=== PATIENT | male | born 1960 | race Caucasian/White ===

== ENCOUNTER 2018-06-21 18:35 | Emergency (ER) | payer OTHER ==
[~2018-06-21] VITALS: Ht 188 cm; Wt 95.2 kg
[~2018-06-21 18:35] MED LIST: ACET325 PO; ALBU.083IS IH; ALBU8HFA2 INH; ALBU90OI INH; ALBU90OI6 INH; ALBU90OI61 INH; AMOCLA875 PO; ANORO ELLIPTA1 EACH INH; ASPI81CH PO; ATOR40TA PO; ATOR80 PO; Accuneb1.25 MG/3 INH; Acetaminophen325 M1 PO; Adult Low Dose81 MG PO; BENZ100A PO; BREO ELLIPTA 11 EACH IH; BUSP5 PO; CIPR500 PO; CLOP75 PO; CRUTCH3 USE; CYAN1000 PO; DIAZ5 PO; DIVA500EC PO; DOXY100 PO; DULO30 PO; DULO60 PO; ERGO400 PO; ESOM20; FENO145 PO; FENO48; FISH1000 PO; FLUO10 PO; FLUSAL1005 IH; FLUSAL2505 IH; FOLI400 PO; Fenofibrate134 MG PO; GABA100 PO; GABA300 PO; GLIM2 PO; HYDACE5 PO; HYDPAM25 PO; HYDR-86 PO; IBUP600 PO; INSULANI SUBQ; INSULANPEN SC; Lopressor 50 mg50 MG PO; MECL25 PO; META800 PO; METF500 PO; METO100ER PO; METO50 PO; METO50ER PO; METR500 PO; NAPR500 PO; NAPR550 PO; NITR.2TP TOP; NITR.4SL SL; NITR.6SL; Nitroglycerin0.4 MG SL; ONDA4 PO; OXYACE5T PO; PANT40 PO; PRALUENT P75 MG/1 ML SQ; PROM25 PO; RANI150 PO; RANO500T PO; ROSU10TA PO; ROSU5 PO; RXOXYACE PO; RXPROM25 PO; RXTRAM50 PO; TERA5 PO; TIOT18 IH; TIOT18 INH; TOPI25 PO; TRAM50 PO; TRAZ100 PO; TRAZ50 PO; Ultram50 MG PO; VERA180ER PO; VERA240ER PO; VERA240ERA PO; Ventolin Soln3 ML; Ventolin5 MG/1 ML IH; Vistaril25 MG PO; Zithromax250 MG PO
== END 2018-06-21 22:57 | disposition left against medical advice (07) ==
LOC: ER 18:35
DX: Z53.21 Procedure and treatment not carried out due to patient leaving prior to being seen by health care provider (principal)
CPT/HCPCS: 71046; 93005; 93010

== ENCOUNTER → 2019-07-16 | Outpatient (CLI) | payer OTHER ==
[~2019-07-16] MED LIST changes: +ALBU2.5V5 NEB; +Cymbalta60 MG PO; +FENO67 PO; +NITR.8TP TD; +PRALUENT P75 MG/1 ML SC; +STIOLTO RESPIMAT4 GM INH; +TAMS.4ER PO
== END | disposition home or self-care (01) ==
LOC: LAB SHORT 07:53 → PLD 07:53
DX: L98.8 Other specified disorders of the skin and subcutaneous tissue (principal)
CPT/HCPCS: 88305

== ENCOUNTER 2019-09-14 18:15 | Observation (INO) | payer OTHER ==
[~2019-09-14] VITALS: Ht 182.9 cm; Wt 97.1 kg
[~2019-09-14 18:15] MED LIST changes: +ALBU2.5V5 INH; +BUSP10 PO; +Nitroglycerin1 EAC3 TD; +VOLTAREN100 GM; +Ventolin/Prove6.7 GM INH
[2019-09-14 19:06] LABS: BASOPHILS ABSOLUTE AUTO 0.04 K/mm3 (0.00-0.23); BASOPHILS PERCENT AUTO 1 % (0-2); EOSINOPHILS ABSOLUTE AUTO 0.03 K/mm3 (0.00-0.68); EOSINOPHILS PERCENT AUTO 0 % (0-6); Hematocrit 45.8 % (37.0-53.0); Hemoglobin 15.3 g/dL (13.5-17.5); IMMATURE GRAN ABSOLUTE AUTO 0.02 K/mm3 (0.00-0.10); IMMATURE GRAN PERCENT AUTO 0 % (0-1); LYMPHOCYTES ABSOLUTE AUTO 1.68 K/mm3 (0.84-5.20); LYMPHOCYTES PERCENT AUTO 22 % (21-46); MONOCYTES ABSOLUTE AUTO 0.63 K/mm3 (0.16-1.47); MONOCYTES PERCENT AUTO 8 % (4-13); Mean Corpuscular HGB 30.7 pg (26.0-34.0); Mean Corpuscular HGB Conc 33.4 g/dL (31.5-36.5); Mean Corpuscular Volume 92 fL (80-100); NEUTROPHILS ABSOLUTE AUTO 5.27 K/mm3 (1.96-9.15); NEUTROPHILS PERCENT AUTO 69 % (41-73); Platelet Count 205 K/mm3 (150-400); RDW Coefficient Variation 12.8 % (11.7-14.2); RDW Standard Deviation 43.2 fL (35.1-46.3); Red Blood Cell Count 4.98 M/mm3 (4.30-5.90); White Blood Cell Count 7.67 K/mm3 (4.00-11.30)
[2019-09-14 19:21] LABS: Alanine Aminotransfer (ALT/SGP 46 U/L (12-78); Albumin, Blood 3.6 g/dL (3.4-5.0); Albumin/Globulin Ratio 1.2 (0.8-1.8); Alk Phos 83 U/L (50-136); Anion Gap 4 mmol/L (6-16); Aspartate Aminotrans (AST/SGOT 21 U/L (12-37); Bilirubin, Total 0.8 mg/dL (0.1-1.0); Blood Urea Nitrogen 11 mg/dL (8-24); Bun/Creatinine Ratio 10.1 (12.0-20.0); CO2, Blood 26 mmol/L (21-32); Calcium, Blood 8.7 mg/dL (8.5-10.1); Chloride, Blood 110 mmol/L (98-108); Creatinine, Blood 1.09 mg/dL (0.60-1.20); Globulin, Blood 3.1 g/dL (2.2-4.0); Glomerular Filtration Rate >60 (60-); Glucose, Blood 111 mg/dL (70-99); Sodium, Blood 140 mmol/L (136-145); Total Protein, Blood 6.7 g/dL (6.4-8.2); Troponin I <0.015 ng/mL (0.000-0.040)
--- NOTE | 2019-09-14 22:00 | NUR ---
PT FROM ER TRANSFERRED SELF TO BED; PT A&O STATING HER HAD CHEST PAIN EARLIER; PARTNER AND FAMILY AT BEDSIDE; PT ON RA; 02 SATS >93; VSS; INCREASED SLEEPINESS OVER 1-2HR PERIOD; AFTER REVIEWING EMAR HELD BUSPAR DUE TO SEDATION LEVEL; SNACKS BROUGHT TO PT; TOO SLEEPY TO EAT; CALL LIGHT IN REACH; BED IN LOWEST POSITION; WILL CONTINUE TO MONITOR CLOSELY
--- NOTE | 2019-09-15 01:42 | NUR ---
UPDATE PT ALERT REQUESTING PAIN MEDS; PT EDUCATED ON TIME FRAME OF ADMINISTRATION; MORE VISITORS TO ROOM; PT VISITING AND LAUGHING; VSS; O2 SATS >93 ON RA; DIET SPRITE BROUGHT TO PT; SNACKS ON TRAY TABLE; CALL LIGHT IN REACH; BED IN LOWEST POSITION
--- NOTE | 2019-09-15 05:14 | NUR ---
SHIFT SUMMARY PT SLEPT WELL AFTER VISITORS LEFT; PARTNER SLEEPING IN CHAIR AT BEDSIDE; VSS; O2 SATS >90 ON RA; CALL LIGHT IN REACH; BED IN LOWEST POSITION; WILL CONTINUE TO MONITOR CLOSELY
--- NOTE | 2019-09-15 08:30 | NUR ---
UPON INITIAL ASSESSMENT, PT REPORTED CHEST PESSURE/PAIN RATED 4/10 WITH PAIN IN THE LEFT ARM. EXPLAINED PRN TREATMENT OF NITRO SL TO PT, HOWEVER PT REFUSED. BREAKFAST TRAY GIVEN TO PT AND EXPLAINED HOW THE MENU WORKS, PT DECLINED BREAKFAST AND STATED "DON'T BOTHER GIVING ME ANY TRAYS, YOUR FOOD IS CRAP. I'LL HAVE SOMEONE BRING ME FOOD" EXPLAINED TO PT THAT HE IS ON A SPECIALIZED DIET THAT IS RECOMMENDED FOR HIM TO FOLLOW. PT REQUESTED HIS MEDICATION FOR ANXIETY, PRN MED GIVEN.
--- NOTE | 2019-09-15 11:37 | NUR ---
Echocardiogram completed.
--- NOTE | 2019-09-15 14:15 | NUR ---
PT ARRIVED BACK TO ROOM FROM [facility], S/P HEART CATH. TR BAND IN PLACE WITH 10MLS OF AIR, NO HEMATOMA NOTED. IV ACCESS WAS LOST WHILE AT [facility], AFTER MULTIPLE POKES, A FEMORAL VENOUS LINE WAS PLACED FOR IV ACCESS. HEART CATH WAS CLEAN, NO BLOCK AGES. AFTER RECOVERY OF HEART CATH, PLAN IS TO DISCHARGE PT HOME. PT IS CURRENTLY LETHARGIC, AWAKENS EASILY AND FOLLOWS COMMANDS. ENCOURAGED PT TO TAKE DEEP BREATHS, HE IS SHALLOW BREATHING. 2L O2 PLACED VIA NASAL CANNULA UNTIL PT IS MORE AWAKE. TELEMETRY SHOWS PT TO BE IN SINUS RHYTHM. FAMILY AT BEDSIDE
[2019-09-15] MEDS ORDERED: ALPR.5 PO (15:17)
[2019-09-15] MEDS ORDERED: ATOR20 PO (15:19)
--- NOTE | 2019-09-15 18:18 | NUR ---
DISCHARGE INSTRUCTIONS GONE OVER WITH PT AND FRIEND. PROVIDED PRESCRIPTION TO PT AND INSTRUCTED ON HOW TO HAVE FILLED. PT AND FRIEND STATED UNDERSTANDING. WENT OVER IN DETAIL CARE ON RADIAL ACCESS POST HEART CATH. DISCHARGE PACKET GIVEN TO PT. PRIOR TO DISCHARGE INSTRUCTIONS FEMORAL VENOUS SHEATH WAS REMOVED AND MANUAL PRESSURE APPLIED FOR 5 MINUTES. DRESSING APPLIED AND INSTRUCTED PT ON CARE OF SITE. FEMORAL SITE LOOKED GOOD POST AMBULATION. ALL BELONGINGS WERE GATHERED AND PT WAS ESCORTED OUT VIA W/C BY PCT.
== END 2019-09-15 18:10 | disposition home or self-care (01) ==
LOC: ER 18:15 → PCU 18:16
PROVIDERS: Emergency Medicine; ADMIT Family Medicine
DX: R07.9 Chest pain, unspecified (principal); I25.10 Atherosclerotic heart disease of native coronary artery without angina pectoris; R55 Syncope and collapse; I42.1 Obstructive hypertrophic cardiomyopathy; E78.5 Hyperlipidemia, unspecified; F17.210 Nicotine dependence, cigarettes, uncomplicated; J44.9 Chronic obstructive pulmonary disease, unspecified; F41.9 Anxiety disorder, unspecified; E78.00 Pure hypercholesterolemia, unspecified; I25.2 Old myocardial infarction; E11.42 Type 2 diabetes mellitus with diabetic polyneuropathy; Z88.5 Allergy status to narcotic agent; Z88.8 Allergy status to other drugs, medicaments and biological substances; Z79.02 Long term (current) use of antithrombotics/antiplatelets; Z79.899 Other long term (current) drug therapy; Z79.51 Long term (current) use of inhaled steroids; Z71.6 Tobacco abuse counseling; Z79.4 Long term (current) use of insulin; Z86.73 Personal history of transient ischemic attack (TIA), and cerebral infarction without residual deficits
CPT/HCPCS: 36415; 71045; 76937; 80053; 82947; 84484; 85025; 85347; 85379; 93005; 93010; 93306; 93458; 96372-59; 96374; 96375; 96376; 99152; 99153; 99285-25; A9270; C1769; C1894; G0378; J1644; J1650; J2250; J2270; J2405; J3010; J7030; Q9967

== ENCOUNTER 2019-09-20 09:30 | Day surgery (SDC) | payer OTHER ==
[~2019-09-20] VITALS: Ht 188 cm; Wt 94.1 kg
[~2019-09-20 09:30] MED LIST changes: +ALPR.5 PO; +ATOR20 PO
--- NOTE | 2019-09-20 11:21 | NUR ---
09/20/19 1121 Blossom Bedoya MULTIPLE IV ATTEMPTS BY DIFFERENT PEOPLE. I WAS CALLED IN BY CHARGE NURSE SHERRY AND DID ONE ATTEMPT IN LEFT HAND. LOOKED AT HIS RIGHT FOOT WITH THE VEIN FINDER AND NOTHING VISUALIZED. USED THE VEIN FINDER AGAIN AND LOOKED AT LEFT AC AND DID ONE ATTEMPT, ASKING THE PATIENT PRIOR TO ATTEMPT IF HE WANTED ME TO TRY AGAIN. HE SAID YES. ANTHONY HALEY WAS PRESENT IN THE ROOM. ATTEMPT DONE WITH 22G. THE FIRST TIME THE PATIENT COMPLAINED IT WAS HURTING I STOPPED. HE GOT ANGRY AND STARTED DEMANDING SOMEONE ELSE. I ASSURRED HIM WE WOULD GET SOMEONE ELSE SOON I HAD HIS IV ATTEMPT SITE WRAPPED WITH COBAN APPROPRIATELY. ANTHONY AND I FINISHED WRAPPING HIS IV AND WE LEFT ROOM AND FIND DR CROOK. IN DISCUSSING THIS WITH PATIENT
== END 2019-09-20 13:12 | disposition home or self-care (01) ==
LOC: ORSCSDS 09:30
DX: Z86.010 Personal history of colon polyps (principal); Z53.9 Procedure and treatment not carried out, unspecified reason
CPT/HCPCS: 82947; J2250; J2704; J7120

== ENCOUNTER 2020-08-23 08:23 | Emergency (ER) | payer OTHER ==
[~2020-08-23] VITALS: Ht 188 cm; Wt 93.0 kg
[2020-08-23 09:07] LABS: BASOPHILS ABSOLUTE AUTO 0.02 K/mm3 (0.00-0.23); BASOPHILS PERCENT AUTO 0 % (0-2); EOSINOPHILS ABSOLUTE AUTO 0.03 K/mm3 (0.00-0.68); EOSINOPHILS PERCENT AUTO 1 % (0-6); Hematocrit 51.4 % (37.0-53.0); Hemoglobin 17.4 g/dL (13.5-17.5); IMMATURE GRAN ABSOLUTE AUTO 0.02 K/mm3 (0.00-0.10); IMMATURE GRAN PERCENT AUTO 0 % (0-1); LYMPHOCYTES ABSOLUTE AUTO 1.77 K/mm3 (0.84-5.20); LYMPHOCYTES PERCENT AUTO 28 % (21-46); MONOCYTES ABSOLUTE AUTO 0.66 K/mm3 (0.16-1.47); MONOCYTES PERCENT AUTO 10 % (4-13); Mean Corpuscular HGB 30.7 pg (26.0-34.0); Mean Corpuscular HGB Conc 33.9 g/dL (31.5-36.5); Mean Corpuscular Volume 91 fL (80-100); Mean Platelet Volume 9.1 fL (9.1-12.4); NEUTROPHILS ABSOLUTE AUTO 3.93 K/mm3 (1.96-9.15); NEUTROPHILS PERCENT AUTO 61 % (41-73); Platelet Count 196 K/mm3 (150-400); RDW Coefficient Variation 12.5 % (11.7-14.2); RDW Standard Deviation 42.1 fL (35.1-46.3); Red Blood Cell Count 5.67 M/mm3 (4.30-5.90); White Blood Cell Count 6.43 K/mm3 (4.00-11.30)
[2020-08-23 09:26] LABS: Alanine Aminotransfer (ALT/SGP 25 U/L (12-78); Albumin/Globulin Ratio 1.1 (0.8-1.8); Alk Phos 91 U/L (50-136); Anion Gap 7 mmol/L (6-16); Aspartate Aminotrans (AST/SGOT 16 U/L (12-37); Bilirubin, Total 0.5 mg/dL (0.1-1.0); Blood Urea Nitrogen 14 mg/dL (8-24); Bun/Creatinine Ratio 12.1 (12.0-20.0); CO2, Blood 23 mmol/L (21-32); Calcium, Blood 9.4 mg/dL (8.5-10.1); Chloride, Blood 109 mmol/L (98-108); Creatinine, Blood 1.16 mg/dL (0.60-1.20); Globulin, Blood 3.5 g/dL (2.2-4.0); Glomerular Filtration Rate >60 (60-); Glucose, Blood 159 mg/dL (70-99); Potassium, Blood 4.3 mmol/L (3.5-5.5); Sodium, Blood 139 mmol/L (136-145); Total Protein, Blood 7.5 g/dL (6.4-8.2)
[2020-08-23] MEDS ORDERED: CYCL10 PO (10:32)
== END 2020-08-23 10:51 | disposition home or self-care (01) ==
LOC: ER 08:23
PROVIDERS: Emergency Medicine
DX: S16.1XXA Strain of muscle, fascia and tendon at neck level, initial encounter (principal); R51.9 Headache, unspecified; E11.9 Type 2 diabetes mellitus without complications; I10 Essential (primary) hypertension; I25.10 Atherosclerotic heart disease of native coronary artery without angina pectoris; E78.5 Hyperlipidemia, unspecified; F32.9 Major depressive disorder, single episode, unspecified; K21.9 Gastro-esophageal reflux disease without esophagitis; F17.210 Nicotine dependence, cigarettes, uncomplicated; Z79.899 Other long term (current) drug therapy; Z79.4 Long term (current) use of insulin; Z79.02 Long term (current) use of antithrombotics/antiplatelets; Z88.5 Allergy status to narcotic agent; Z88.8 Allergy status to other drugs, medicaments and biological substances; Z86.73 Personal history of transient ischemic attack (TIA), and cerebral infarction without residual deficits; X58.XXXA Exposure to other specified factors, initial encounter
CPT/HCPCS: 36415; 70450; 80053; 84484; 85025; 93005; 93010; 96374; 96375; 99284-25; J1100; J3010; J3360; J7030

== ENCOUNTER 2021-04-15 12:27 | Day surgery (SDC) | payer OTHER ==
[~2021-04-15] VITALS: Ht 188 cm; Wt 92.5 kg
[~2021-04-15 12:27] MED LIST changes: +CYCL10 PO
--- NOTE | 2021-04-15 13:05 | NUR ---
04/15/21 1305 Agustina Santana IN ROOM TO TURN OF DEFIBULATOR AT 1524
--- NOTE | 2021-04-15 14:41 | NUR ---
04/15/21 1441 Meron Keyes POSITION VERIFIED BY SURGEON AND ANESTHESIA.
== END 2021-04-15 15:57 | disposition home or self-care (01) ==
LOC: ORSCSDS 12:27
PROVIDERS: Orthopaedic Surgery
PROC: 0LS44ZZ Reposition Left Upper Arm Tendon, Percutaneous Endoscopic Approach (ICD-10-PCS; principal; 2021-04-15 14:00)
PROC: 0RNK4ZZ Release Left Shoulder Joint, Percutaneous Endoscopic Approach (ICD-10-PCS; principal; 2021-04-15 14:00)
PROC: 0LQ24ZZ Repair Left Shoulder Tendon, Percutaneous Endoscopic Approach (ICD-10-PCS; principal; 2021-04-15 14:00)
DX: S46.002A Unspecified injury of muscle(s) and tendon(s) of the rotator cuff of left shoulder, initial encounter (principal); M75.112 Incomplete rotator cuff tear or rupture of left shoulder, not specified as traumatic; M75.22 Bicipital tendinitis, left shoulder; M75.42 Impingement syndrome of left shoulder; I10 Essential (primary) hypertension; J44.9 Chronic obstructive pulmonary disease, unspecified; I25.10 Atherosclerotic heart disease of native coronary artery without angina pectoris; E11.9 Type 2 diabetes mellitus without complications; E78.00 Pure hypercholesterolemia, unspecified; G25.81 Restless legs syndrome; G47.33 Obstructive sleep apnea (adult) (pediatric); F41.9 Anxiety disorder, unspecified; Z95.0 Presence of cardiac pacemaker; Z79.4 Long term (current) use of insulin; Z79.899 Other long term (current) drug therapy; Z87.891 Personal history of nicotine dependence
CPT/HCPCS: 82947; 93287; A9270; C1713; J0171; J0690; J1100; J2001; J2250; J2370; J2405; J2704; J3010; J7120

== ENCOUNTER → 2021-07-21 | Outpatient (CLI) | payer OTHER | END | disposition home or self-care (01) | LOC: LAB 13:37 → LAB SHORT 13:37 | DX: L57.0 Actinic keratosis (principal) | CPT/HCPCS: 88305 ==

== ENCOUNTER 2021-11-30 04:50 | Day surgery (SDC) | payer OTHER ==
[~2021-11-30 04:50] MED LIST changes: +ASPIR 8181 MG PO
== END 2021-11-30 10:42 | disposition home or self-care (01) ==
LOC: ATC 04:50
DX: Z45.2 Encounter for adjustment and management of vascular access device (principal); I10 Essential (primary) hypertension; I25.10 Atherosclerotic heart disease of native coronary artery without angina pectoris; J44.9 Chronic obstructive pulmonary disease, unspecified; E11.9 Type 2 diabetes mellitus without complications; E78.5 Hyperlipidemia, unspecified; Z86.010 Personal history of colon polyps; Z95.810 Presence of automatic (implantable) cardiac defibrillator; Z88.8 Allergy status to other drugs, medicaments and biological substances; Z87.891 Personal history of nicotine dependence
CPT/HCPCS: 99211; C1751

== ENCOUNTER 2021-12-01 07:51 | Day surgery (SDC) | payer OTHER ==
[~2021-12-01] VITALS: Ht 188 cm; Wt 94.3 kg
--- NOTE | 2021-12-01 08:25 | NUR ---
12/01/21 0825 DANIELE FUENTES IV STARTED PRIOR TO VISIT IN R ARM.
--- NOTE | 2021-12-01 10:21 | NUR ---
12/01/21 1021 Rashida Cox LATE ENTRY PATIENT HAD POWER GLYDE PLACED ON 11/30/21, PATIENT WILL RETURN TO [facility] ON 12/02/21 FOR COLONOSCOPY. POWER GLYDE WAS NOT REMOVED TODAY.
== END 2021-12-01 09:45 | disposition home or self-care (01) ==
LOC: ORSCSDS 07:51
DX: Z12.11 Encounter for screening for malignant neoplasm of colon (principal); Z86.010 Personal history of colon polyps; D12.5 Benign neoplasm of sigmoid colon; D12.2 Benign neoplasm of ascending colon; D12.3 Benign neoplasm of transverse colon; K64.8 Other hemorrhoids; K57.30 Diverticulosis of large intestine without perforation or abscess without bleeding; K21.9 Gastro-esophageal reflux disease without esophagitis; E78.5 Hyperlipidemia, unspecified; Z86.73 Personal history of transient ischemic attack (TIA), and cerebral infarction without residual deficits; K59.09 Other constipation; I10 Essential (primary) hypertension; I25.10 Atherosclerotic heart disease of native coronary artery without angina pectoris; E13.40 Other specified diabetes mellitus with diabetic neuropathy, unspecified; G47.33 Obstructive sleep apnea (adult) (pediatric); F17.210 Nicotine dependence, cigarettes, uncomplicated; Z79.82 Long term (current) use of aspirin; Z79.4 Long term (current) use of insulin; Z79.899 Other long term (current) drug therapy
CPT/HCPCS: 82947; 88305; J2704; J7120

== ENCOUNTER → 2022-03-23 | Outpatient (CLI) | payer OTHER | END | disposition home or self-care (01) | LOC: LAB SHORT 16:14 → LAB 16:14 | DX: B99.9 Unspecified infectious disease (principal) | CPT/HCPCS: 87070; 87075; 87077; 87186; 87205 ==

== ENCOUNTER 2023-04-30 20:45 | Emergency (ER) | payer OTHER ==
[~2023-04-30] VITALS: Ht 188 cm; Wt 83.0 kg
[2023-04-30] MEDS ORDERED: ATORVASTATIN CA20 MG PO (21:06)
[2023-04-30] MEDS ORDERED: TAMSULOSIN HCL0.4 M1 PO (21:08)
[2023-04-30 21:26] LABS: BASOPHILS ABSOLUTE AUTO 0.03 K/mm3 (0.00-0.23); BASOPHILS PERCENT AUTO 1 % (0-2); EOSINOPHILS ABSOLUTE AUTO 0.02 K/mm3 (0.00-0.68); EOSINOPHILS PERCENT AUTO 0 % (0-6); Hematocrit 46.8 % (37.0-53.0); Hemoglobin 16.4 g/dL (13.5-17.5); IMMATURE GRAN ABSOLUTE AUTO 0.01 K/mm3 (0.00-0.10); IMMATURE GRAN PERCENT AUTO 0 % (0-1); LYMPHOCYTES ABSOLUTE AUTO 1.55 K/mm3 (0.84-5.20); LYMPHOCYTES PERCENT AUTO 24 % (21-46); MONOCYTES ABSOLUTE AUTO 0.62 K/mm3 (0.16-1.47); MONOCYTES PERCENT AUTO 10 % (4-13); Mean Corpuscular HGB 32.5 pg (26.0-34.0); Mean Corpuscular Volume 93 fL (80-100); Mean Platelet Volume 8.9 fL (9.1-12.4); NEUTROPHILS PERCENT AUTO 66 % (41-73); Platelet Count 196 K/mm3 (150-400); RDW Coefficient Variation 13.1 % (11.7-14.2); Red Blood Cell Count 5.05 M/mm3 (4.30-5.90); White Blood Cell Count 6.53 K/mm3 (4.00-11.30)
[2023-04-30 21:38] LABS: Albumin, Blood 3.5 g/dL (3.4-5.0); Albumin/Globulin Ratio 1.2 (0.8-1.8); Bilirubin, Total 0.5 mg/dL (0.1-1.0); Bun/Creatinine Ratio 11.8 (12.0-20.0); Calcium, Blood 8.6 mg/dL (8.5-10.1); Creatinine, Blood 1.19 mg/dL (0.60-1.20); Globulin, Blood 2.9 g/dL (2.2-4.0); Total Protein, Blood 6.4 g/dL (6.4-8.2)
[2023-05-01 00:33] VITALS: BP 111/85
== END 2023-05-01 00:39 | disposition home or self-care (01) ==
LOC: ER 20:45
PROVIDERS: Emergency Medicine
DX: R55 Syncope and collapse (principal); R07.9 Chest pain, unspecified; R11.2 Nausea with vomiting, unspecified; R19.7 Diarrhea, unspecified; E11.9 Type 2 diabetes mellitus without complications; I10 Essential (primary) hypertension; I25.10 Atherosclerotic heart disease of native coronary artery without angina pectoris; I25.2 Old myocardial infarction; E78.5 Hyperlipidemia, unspecified; F17.210 Nicotine dependence, cigarettes, uncomplicated; Z86.73 Personal history of transient ischemic attack (TIA), and cerebral infarction without residual deficits; Z88.8 Allergy status to other drugs, medicaments and biological substances; Z88.6 Allergy status to analgesic agent; Z88.5 Allergy status to narcotic agent; Z79.4 Long term (current) use of insulin; Z79.899 Other long term (current) drug therapy
CPT/HCPCS: 71045; 80053; 83880; 84484; 85025; 93005; 93010; 96361; 96374; 96375; 99285-25; A9270; J1885; J2405; J7030

== ENCOUNTER 2023-05-16 00:55 | Day surgery (SDC) | payer OTHER ==
[~2023-05-16 00:55] MED LIST changes: +ATORVASTATIN CA20 MG PO; +TAMSULOSIN HCL0.4 M1 PO
[2023-05-16 14:53] VITALS: BP 119/72
[2023-05-16] MEDS ORDERED: AZELASTINE137 MCG/01 (16:28)
[2023-05-16] MEDS ORDERED: TRUVADA 200 MG1 EACH PO (16:29)
[2023-05-16] MEDS ORDERED: Isosorbide Mono30 MG PO (16:29)
[2023-05-16] MEDS ORDERED: ONDA4ODT MM (16:30)
[2023-05-16] MEDS ORDERED: POLYETHYLENE GLYCOL (16:31)
[2023-05-16] MEDS ORDERED: PRALUENT P75 MG/1 ML SC (16:34)
[2023-05-16] MEDS ORDERED: STIOLTO RESPIMAT4 G1 INH (16:36)
== END 2023-05-16 15:28 | disposition home or self-care (01) ==
LOC: ATC 00:55
DX: R63.4 Abnormal weight loss (principal); K59.09 Other constipation; I87.2 Venous insufficiency (chronic) (peripheral); K21.9 Gastro-esophageal reflux disease without esophagitis; E78.5 Hyperlipidemia, unspecified; I10 Essential (primary) hypertension; J44.9 Chronic obstructive pulmonary disease, unspecified; I25.10 Atherosclerotic heart disease of native coronary artery without angina pectoris; E11.40 Type 2 diabetes mellitus with diabetic neuropathy, unspecified; Z95.810 Presence of automatic (implantable) cardiac defibrillator; Z88.8 Allergy status to other drugs, medicaments and biological substances; Z88.5 Allergy status to narcotic agent; Z79.4 Long term (current) use of insulin; Z79.899 Other long term (current) drug therapy
CPT/HCPCS: 99211; C1751

== ENCOUNTER 2023-05-17 11:24 | Day surgery (SDC) | payer OTHER ==
[~2023-05-17] VITALS: Ht 188 cm; Wt 83.5 kg
[~2023-05-17 11:24] MED LIST changes: +AZELASTINE137 MCG/01; +Isosorbide Mono30 MG PO; +ONDA4ODT MM; +POLYETHYLENE GLYCOL; +STIOLTO RESPIMAT4 G1 INH; +TRUVADA 200 MG1 EACH PO
[2023-05-17 12:39] VITALS: BP 109/66
--- NOTE | 2023-05-17 13:21 | NUR ---
05/17/23 1321 [place] IV REMOVED INTACT. SITE WNL. PRESSURE HELD 1-2 MINUTES. NO BLEEDING. PT REPORTED 10/10 ABD PAIN IN SDU. PT STATES PAIN IS THE SAME BEFORE PROCEDURE. DR. SILVERIO NOTIFIED AND APPROVED PT'S DISCHARGE.
== END 2023-05-17 13:15 | disposition home or self-care (01) ==
LOC: ORSCSDS 11:24
PROVIDERS: Internal Medicine Gastroenterology
PROC: 0DB98ZX Excision of Duodenum, Via Natural or Artificial Opening Endoscopic, Diagnostic (ICD-10-PCS; principal; 2023-05-17 13:45)
PROC: 0DB68ZX Excision of Stomach, Via Natural or Artificial Opening Endoscopic, Diagnostic (ICD-10-PCS; principal; 2023-05-17 13:45)
PROC: 0DBK8ZX Excision of Ascending Colon, Via Natural or Artificial Opening Endoscopic, Diagnostic (ICD-10-PCS; principal; 2023-05-17 13:45)
DX: R63.4 Abnormal weight loss (principal); K59.09 Other constipation; D12.2 Benign neoplasm of ascending colon; K57.30 Diverticulosis of large intestine without perforation or abscess without bleeding; K31.7 Polyp of stomach and duodenum; K29.80 Duodenitis without bleeding; K21.00 Gastro-esophageal reflux disease with esophagitis, without bleeding; Z86.010 Personal history of colon polyps; Z80.0 Family history of malignant neoplasm of digestive organs; I10 Essential (primary) hypertension; I25.10 Atherosclerotic heart disease of native coronary artery without angina pectoris; K29.70 Gastritis, unspecified, without bleeding; E11.9 Type 2 diabetes mellitus without complications; E78.5 Hyperlipidemia, unspecified; R10.30 Lower abdominal pain, unspecified; F41.9 Anxiety disorder, unspecified; Z86.73 Personal history of transient ischemic attack (TIA), and cerebral infarction without residual deficits; F17.210 Nicotine dependence, cigarettes, uncomplicated; Z79.4 Long term (current) use of insulin; Z79.899 Other long term (current) drug therapy
CPT/HCPCS: 82947; 88305; 88342; J2704; J7120

== ENCOUNTER → 2023-08-24 | Outpatient (CLI) | payer OTHER | LOC: LAB 16:17 → LAB SHORT 16:17 | DX: N39.0 Urinary tract infection, site not specified (principal) | CPT/HCPCS: 87086 ==

== ENCOUNTER 2025-04-17 16:49 | Emergency (ER) | payer OTHER ==
[~2025-04-17] VITALS: Ht 170.2 cm; Wt 81.7 kg
[~2025-04-17 16:49] MED LIST changes: +OMEP20ER PO
[2025-04-17 17:07] LABS: BASOPHILS ABSOLUTE AUTO 0.03 K/mm3 (0.00-0.23); BASOPHILS PERCENT AUTO 0 % (0-2); EOSINOPHILS ABSOLUTE AUTO 0.01 K/mm3 (0.00-0.68); EOSINOPHILS PERCENT AUTO 0 % (0-6); Hematocrit 47.0 % (37.0-53.0); Hemoglobin 16.6 g/dL (13.5-17.5); IMMATURE GRAN ABSOLUTE AUTO 0.02 K/mm3 (0.00-0.10); IMMATURE GRAN PERCENT AUTO 0 % (0-1); LYMPHOCYTES ABSOLUTE AUTO 2.38 K/mm3 (0.84-5.20); LYMPHOCYTES PERCENT AUTO 34 % (21-46); MONOCYTES ABSOLUTE AUTO 0.60 K/mm3 (0.16-1.47); MONOCYTES PERCENT AUTO 9 % (4-13); Mean Corpuscular HGB Conc 35.3 g/dL (31.5-36.5); Mean Corpuscular Volume 92 fL (80-100); NEUTROPHILS ABSOLUTE AUTO 3.90 K/mm3 (1.96-9.15); NEUTROPHILS PERCENT AUTO 56 % (41-73); NRBC ABSOLUTE 0.00 K/mm3 (0.00-0.02); NRBC Auto 0.0 /100 WBC (0.0-0.2); Platelet Count 189 K/mm3 (150-400); RDW Coefficient Variation 12.6 % (11.7-14.2); RDW Standard Deviation 42.8 fL (35.1-46.3)
[2025-04-17] MEDS ORDERED: Ondansetron HCl 2 MG / ML 2ML Vial IV ONE (17:35)
[2025-04-17] MEDS ORDERED: FentaNYL Citrate 50 MCG/ML 2 ML Injection IV ONE ×2 (17:35→18:50)
[2025-04-17 17:39] LABS: Alanine Aminotransfer (ALT/SGP 36.0 U/L (12-78); Albumin, Blood 3.7 g/dL (3.4-5.0); Albumin/Globulin Ratio 1.1 (0.8-1.8); Anion Gap 7.0 mmol/L (3-11); Aspartate Aminotrans (AST/SGOT 19.0 U/L (12-37); Bilirubin, Total 0.8 mg/dL (0.1-1.0); Blood Urea Nitrogen 11.0 mg/dL (8-24); CO2, Blood 28.0 mmol/L (21-32); Calcium, Blood 9.3 mg/dL (8.5-10.1); Chloride, Blood 106.0 mmol/L (98-108); Creatinine, Blood 1.17 mg/dL (0.60-1.20); Globulin, Blood 3.3 g/dL (2.2-4.0); Glucose, Blood 175.0 mg/dL (70-99); Potassium, Blood 4.4 mmol/L (3.5-5.5); Sodium, Blood 137.0 mmol/L (136-145); Total Protein, Blood 7.0 g/dL (6.4-8.2)
[2025-04-17 17:45] LABS: Prothrombin Time Results 11.4 Sec (9.7-11.5)
[2025-04-17] MEDS ORDERED: Tenecteplase 50 MG / Kit IV ONE (17:55)
[2025-04-17 20:15] VITALS: BP 104/72
== END 2025-04-17 22:01 | disposition short-term general hospital (02) ==
LOC: ER 16:49
PROVIDERS: Emergency Medicine
DX: I63.9 Cerebral infarction, unspecified (principal); G81.91 Hemiplegia, unspecified affecting right dominant side; E11.9 Type 2 diabetes mellitus without complications; I10 Essential (primary) hypertension; Z86.73 Personal history of transient ischemic attack (TIA), and cerebral infarction without residual deficits; Z79.4 Long term (current) use of insulin; Z79.899 Other long term (current) drug therapy
CPT/HCPCS: 70450; 70496; 70498; 80053; 82947; 84484; 85025; 85610; 85730; 93005; 93010; 96374-59; 96375-59; 96376-59; 99285-25; J2405; J3010; J3101; Q9967

== ENCOUNTER 2025-07-26 22:59 | Emergency (ER) | payer OTHER ==
[~2025-07-26] VITALS: Ht 188 cm; Wt 88.0 kg
[2025-07-27] MEDS ORDERED: Morphine Sulfate 4 MG/1 ML Injection IV ONE (00:30)
[2025-07-27] MEDS ORDERED: NS 1,000 ML IV SCH (01:25)
[2025-07-27 01:45] VITALS: BP 105/76
[2025-07-27] MEDS ORDERED: IBUP600 PO (01:46)
== END 2025-07-27 01:59 | disposition home or self-care (01) ==
LOC: ER 22:59
DX: R68.84 Jaw pain (principal); M25.512 Pain in left shoulder; I10 Essential (primary) hypertension; E11.9 Type 2 diabetes mellitus without complications; Y04.8XXA Assault by other bodily force, initial encounter; Z87.891 Personal history of nicotine dependence
CPT/HCPCS: 70450; 70486; 72125; 73030; 96374; 99284-25; J2270; J7030